=== PATIENT | male | born 1955 | race Hispanic/Latino ===

== ENCOUNTER 2023-06-04 12:16 | Outpatient (CLI) | payer MEDICARE ==
[~2023-06-04 12:16] MED LIST: Magnevist 469MG/ML 20 ML VIAL ONE
== END 2023-06-04 12:17 | disposition home or self-care (01) ==
LOC: CSHMRI 12:16
PROVIDERS: ATTEND Otolaryngology Plastic Surgery within the Head & Neck
DX: H90.41 Sensorineural hearing loss, unilateral, right ear, with unrestricted hearing on the contralateral side (principal)
CPT/HCPCS: 70553; 82565